=== PATIENT | male | born 1990 ===

== ENCOUNTER 2018-08-11 09:00 | Emergency (ER) | payer OTHER | END 2018-08-11 11:44 | disposition other institution (70) | LOC: ED 09:00 | DX: Z02.89 Encounter for other administrative examinations (principal) ==

== ENCOUNTER 2018-08-11 09:00 | Emergency (ER) | payer MEDICAID ==
[~2018-08-11] VITALS: Ht 180.3 cm; Wt 85.3 kg
[2018-08-11 09:10] VITALS: Ht 180.3 cm; Wt 85.3 kg
[2018-08-11 09:46] LABS: BASOPHIL % 0.3 % (0-2); PLATELET COUNT 253 x10^3mcL (130-400); RED CELL DISTRIBUTION WIDTH 13.1 % (11.5-14.5)
[2018-08-11 09:58] LABS: CALCIUM 8.3 mg/dL (8.5-10.1); CARBON DIOXIDE 24.3 mmol/L (21-32); CHLORIDE SERUM 103 mmol/L (98-107); GFR1 > 60 mL/min; GLUCOSE SERUM 111 mg/dL (74-106); POTASSIUM SERUM 3.1 mmol/L (3.5-5.1); SODIUM SERUM 140 mmol/L (136-145)
[2018-08-11 10:00] LABS: ALBUMIN 3.7 g/dL (3.4-5.0); ALKALINE PHOSPHATASE 72 U/L (46-116); ALT/SGPT 24 U/L (16-63); AST/SGOT 27 U/L (15-37); BILIRUBIN TOTAL 0.2 mg/dL (0.20-1.00); TOTAL PROTEIN, SERUM 7.1 g/dL (6.4-8.2)
[2018-08-11 10:57] LABS: AMPHETAMINE QUAL UR NONE DETECTED (See below)
[2018-08-11 11:44] VITALS: BP 121/75
== END 2018-08-11 11:44 | disposition other institution (70) ==
LOC: ED 09:00
PROVIDERS: Emergency Medicine
DX: F10.129 Alcohol abuse with intoxication, unspecified (principal); S02.2XXA Fracture of nasal bones, initial encounter for closed fracture; X58.XXXA Exposure to other specified factors, initial encounter; Y93.89 Activity, other specified; Y92.89 Other specified places as the place of occurrence of the external cause; Y99.8 Other external cause status
CPT/HCPCS: G0480; J1630